=== PATIENT | female | born 1965 | race Caucasian/White ===

== ENCOUNTER 2017-07-22 08:43 | Emergency (ER) | payer MEDICARE, MEDICAID ==
[~2017-07-22] VITALS: Ht 160 cm; Wt 56.8 kg
[~2017-07-22 08:43] MED LIST: ATEN25TA PO; CLON0.5T PO; CYCL-259 PO; GABA100C PO; HYDR12.53 PO; HYDR2TAB29 PO; KETO10TA PO; LAMO200T49 PO; LEVO750T26 PO; METH750T87 PO; METR500T PO; NICO1PAT16 TD; SENN-31 PO
[2017-07-22 08:45] VITALS: BP 180/90
[2017-07-22] MEDS ORDERED: OXYcodone/APAP 5/325MG TABLET PO ONE (09:00)
[2017-07-22] MEDS ORDERED: OXYcodone/APAP 5/325MG TABLET ONE (09:03)
== END 2017-07-22 10:19 | disposition home or self-care (01) ==
LOC: ED 09:16
DX: S93.491A Sprain of other ligament of right ankle, initial encounter (principal); I10 Essential (primary) hypertension; X50.1XXA Overexertion from prolonged static or awkward postures, initial encounter; Y93.89 Activity, other specified; Y92.480 Sidewalk as the place of occurrence of the external cause; Y99.8 Other external cause status
CPT/HCPCS: 99284

== ENCOUNTER → 2017-10-19 | Outpatient (CLI) | payer MEDICAID, MEDICARE ==
[~2017-10-19] MED LIST changes: +NICO-487 TD; -NICO1PAT16 TD
== END | disposition home or self-care (01) ==
LOC: CFH 09:12
PROVIDERS: ATTEND Nurse Practitioner
DX: M48.061 Spinal stenosis, lumbar region without neurogenic claudication (principal); M51.16 Intervertebral disc disorders with radiculopathy, lumbar region; Z98.890 Other specified postprocedural states
CPT/HCPCS: 72110; 72148